=== PATIENT | male | born 1970 | race Two or more races ===

== ENCOUNTER 2020-03-20 23:51 | Emergency (ER) | payer BC ==
[2020-03-21] MEDS ORDERED: HYDROmorphone 1 MG/ML Syringe IVPUSH STA (00:24)
[2020-03-21] MEDS ORDERED: Ondansetron 4 MG/2 ML SDV IVPUSH ONE (00:24)
--- NOTE | 2020-03-21 00:29 | EDM.PDOC ---
ED HPI GENERAL MEDICAL PROBLEM - General Chief Complaint: Abdominal Pain Stated Complaint: ABDOMINAL PAIN Time Seen by Provider: 03/21/20 00:03 Source of Information: Reports: Patient History Limitations: Reports: No Limitations - History of Present Illness INITIAL COMMENTS - FREE TEXT/NARRATIVE: Mr. Brunner is a very pleasant 50-year-old gentleman who now presents to the emergency department with right upper quadrant abdominal pain. He states that he developed right upper quadrant abdominal pain, sharp and stabbing in character, around 18:00 this evening, after eating chicken fajitas around 17:00. He states that the pain has been progressively getting worse, and he has not identified any modifiers. He states that the pain radiates through to his right infrascapular area. He has had nausea, but no vomiting, constipation, diarrhea, or urinary symptoms. No recent fever. No prior similar symptoms. The patient did not take any xoou-rwc-doeaimu or home remedies prior to coming to the ED. Here in the ED, the patient's initial BP is found to be modestly elevated at 158/95, otherwise, he is hemodynamically stable, afebrile, saturating 97% on room air. Other than tonight's abdominal pain and nausea, the patient denies having a recent fever, chills, sore throat, ear pain, nasal or sinus congestion, cough, dyspnea, chest pain, palpitations, nausea, vomiting, constipation, diarrhea, abdominal pain, urinary symptoms, recent weight gain or weight loss, recent bloody bowel movements or black bowel movements, recent joint aches, headaches, or rashes. The patient's PCP is Mariana Lake NP. Right Upper Abdomen Pain Score (Numeric/FACES): 8 - Related Data Allergies Allergy/AdvReac Type Severity Reaction Status Date / Time No Known Allergies Allergy Verified 03/21/20 00:06 Home Meds: Home Meds Acetaminophen/HYDROcodone [Homosassa 325-5 MG] 1 - 2 tab PO Q6H PRN #20 tablet 03/21/20 [Rx] Dulaglutide [Trulicity] 1.5 mg SQ 03/21/20 [History] Ondansetron [Zofran ODT] 1 tab PO Q8H PRN #10 tab.dis 03/21/20 [Rx] Past Medical History Endocrine/Metabolic History: Reports: Diabetes, Type II, Obesity/BMI 30+ - Past Surgical History Dermatological Surgical History: Reports: Other (See Below) (Neck lymph node biopsy) Social & Family History - Tobacco Use Smoking Status *Q: Never Smoker - Alcohol Use Alcohol Use History: Yes Alcohol Use Frequency: Socially - Recreational Drug Use Recreational Drug Use: No - Living Situation & Occupation Living situation: Reports: , with Spouse 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 ED EXAM, GI/ABD - Physical Exam Exam: See Below Exam Limited By: No Limitations General Appearance: Alert, WD/WN, Mild Distress (appears uncomfortable) Eyes: Bilateral: Normal Appearance, EOMI Ears: Normal External Exam, Hearing Grossly Normal Nose: Normal Inspection Throat/Mouth: Normal Inspection, Normal Lips, Normal Voice, No Airway Compromise Head: Atraumatic, Normocephalic Neck: Normal Inspection, Full Range of Motion Respiratory/Chest: No Respiratory Distress, Lungs Clear, Normal Breath Sounds, No Accessory Muscle Use Cardiovascular: Normal Peripheral Pulses, Regular Rate, Rhythm, No Edema, No Gallop, No JVD, No Murmur, No Rub GI/Abdominal Exam: Soft, No Organomegaly, No Distention, No Abnormal Bruit, No Mass, Tender (Reproducible, to the right upper quadrant only. Completely nontender elsewhere.), Abnormal Bowel Sounds (diminished) (Male) Exam: Deferred Rectal (Males) Exam: Deferred Back Exam: Normal Inspection, Full Range of Motion. No: CVA Tenderness (L), CVA Tenderness (R) Extremities: Normal Inspection, Normal Range of Motion, Normal Capillary Refill Neurological: Alert, Oriented, Normal Cognition, No Motor/Sensory Deficits Psychiatric: Normal Affect Skin Exam: Warm, Dry, Intact, Normal Color, No Rash Course - Vital Signs Last Recorded V/S: Last Vital Signs Temp 36.2 C 03/21/20 00:03 Pulse 98 03/21/20 00:03 Resp 16 03/21/20 00:03 BP 158/95 H 03/21/20 00:03 Pulse Ox 97 03/21/20 00:03 - Orders/Labs/Meds Orders: Active Orders 24 hr Category Date Time Status Abdomen Pelvis w Cont [CT] Stat Exams 03/21/20 00:24 Taken CORONAVIRUS COVID-19 RAPID [MOLEC] Stat Lab 03/21/20 00:57 Ordered Sodium Chloride 0.9% [Normal Saline] 1,000 ml Med 03/21/20 00:30 Active IV ASDIRECTED Medication Orders Sodium Chloride (Normal Saline) 1,000 mls @ 150 mls/hr IV ASDIRECTED NEEMA Last Admin: 03/21/20 00:51 Dose: 150 mls/hr Documented by: MIGDALIA Labs: Laboratory Tests 03/21/20 03/21/20 Range/Units 00:37 00:37 WBC 10.80 H (4.23-9.07) K/mm3 RBC 5.55 (4.63-6.08) M/mm3 Hgb 16.6 (13.7-17.5) gm/dl Hct 47.4 (40.1-51.0) % MCV 85.4 (79.0-92.2) fl MCH 29.9 (25.7-32.2) pg MCHC 35.0 (32.2-35.5) g/dl RDW Std Deviation 41.1 (35.1-43.9) fL Plt Count 179 (163-337) K/mm3 MPV 9.5 (9.4-12.3) fl Neutrophils % (Manual) 68 H (40-60) % Band Neutrophils % 0 (0-10) % Lymphocytes % (Manual) 24 (20-40) % Atypical Lymphs % 0 % Monocytes % (Manual) 6 (2-10) % Eosinophils % (Manual) 2 (0.8-7.0) % Basophils % (Manual) 0 L (0.2-1.2) Platelet Estimate Adequate Plt Morphology Comment Normal RBC Morph Comment Normal Sodium 139 (136-145) mEq/L Potassium 3.8 (3.5-5.1) mEq/L Chloride 101 (98-107) mEq/L Carbon Dioxide 27 (21-32) mEq/L Anion Gap 14.8 (5-15) BUN 14 (7-18) mg/dL Creatinine 1.1 (0.7-1.3) mg/dL Est Cr Clr Drug Dosing 86.52 mL/min Estimated GFR (MDRD) > 60 (>60) mL/min BUN/Creatinine Ratio 12.7 L (14-18) Glucose 154 H (74-106) mg/dL Calcium 9.1 (8.5-10.1) mg/dL Magnesium 1.7 L (1.8-2.4) mg/dl Total Bilirubin 0.9 (0.2-1.0) mg/dL AST 62 H (15-37) U/L ALT 91 H (16-63) U/L Alkaline Phosphatase 87 (46-116) U/L Total Protein 7.9 (6.4-8.2) g/dl Albumin 3.9 (3.4-5.0) g/dl Globulin 4.0 gm/dL Albumin/Globulin Ratio 1.0 (1-2) Lipase 225 (73-393) U/L Meds: Medications Generic Name Dose Route Start Last Admin Trade Name Freq PRN Reason Stop Dose Admin Sodium Chloride 1,000 mls @ 150 mls/hr 03/21/20 00:30 03/21/20 00:51 Normal Saline IV 150 mls/hr ASDIRECTED NEEMA Administration Discontinued Medications Generic Name Dose Route Start Last Admin Trade Name Freq PRN Reason Stop Dose Admin Diatrizoate Meglum/Diatrizoate Sod 90 ml 03/21/20 02:43 03/21/20 02:44 Gastrografin 37% PO 03/21/20 02:44 90 ml ONETIME ONE Administration Hydromorphone HCl 1 mg 03/21/20 00:24 03/21/20 00:53 Dilaudid IVPUSH 03/21/20 00:25 1 mg ONETIME STA Administration Hydromorphone HCl 1 mg 03/21/20 02:03 03/21/20 02:07 Dilaudid IVPUSH 03/21/20 02:04 1 mg ONETIME ONE Administration Iopamidol 100 ml 03/21/20 02:43 03/21/20 02:44 Isovue-300 (61%) IVPUSH 03/21/20 02:44 100 ml ONETIME ONE Administration Ondansetron HCl 4 mg 03/21/20 00:24 03/21/20 00:51 Zofran IVPUSH 03/21/20 00:25 4 mg ONETIME ONE Administration - Re-Assessments/Exams Free Text/Narrative Re-Assessment/Exam: 03/21/20 00:26 As above, the patient developed sharp/stabbing right upper quadrant abdominal pain, that has been progressively getting worse, since 18:00 this evening, after eating chicken fajitas for dinner around 17:00. The pain radiates through to his right infrascapular area. His pain is reproducible with palpation of his right upper quadrant, but he has no CVA tenderness. He has nausea, but no vomiting. The rest of his exam is unremarkable. He is afebrile. I think his symptoms are most consistent with acute cholecystitis, although a right-sided ureterolith is remotely possible. I have ordered an ultrasound of the right upper quadrant, along with blood work. When he returns from ultrasound, he will drink oral contrast in preparation for a CT of his abdomen and pelvis with oral and IV contrast. In the meantime, the patient will be given IV Dilaudid, IV Zofran, and IV fluid. 03/21/20 00:42 Notified by Estefany ALMENDAREZ that the patient informed her that he had forgotten that he ate a guerrero and egg sandwich around 22:00. That would disqualify him for an ultrasound of the right upper quadrant at this time. I have therefore canceled that test. The patient can begin drinking the oral contrast for the CT. 03/21/20 01:53 The patient's CBC is remarkable for a WBC count mildly elevated at 10.80, but with 0% bandemia. The remainder of his CBC is unremarkable. His CMP is remarkable for a blood glucose elevated at 154, and AST/ALT elevated at 62/91, respectively. The remainder of his CMP is unremarkable. His magnesium level is slightly depressed at 1.7. His lipase level was within normal limits at 225. His swab for the SARS-CoV-2 virus has not yet been collected. 03/21/20 02:03 Notified by Estefany ALMENDAREZ that the patient requested additional pain medication. I have ordered additional Dilaudid. Also notified by Estefany ALMENDAREZ that the patient refused the swab to test for the SARS-CoV-2 virus, citing fear of pain due to nasal polyps. 03/21/20 02:55 CT of the abdomen and pelvis with oral and IV contrast is read by Juan Diego as: 1. Distended gallbladder with multiple gallstones noted. 2. Prominent celiac retroperitoneal lymphadenopathy, the largest measures approximately 3 cm. We have no prior films available for comparison. 03/21/20 03:[address] Kaba at 02:58. He would be to discharge the patient home with some pain medication, antinausea medicine, and a low-fat diet, then have him follow-up in the office this coming , 03/23/2020. 03/21/20 03:05 Test results and my conversation with Dr. Kaba discussed with the patient. As above, I will discharge him home with the recommendation that he eat as low- fat a diet as possible. He may take [id number]-[id number] ibuprofen, and I will prescribe for him some Homosassa and Zofran. He is to follow-up with Dr. Kaba on . Departure - Departure Time of Disposition: 03:06 Disposition: Home, Self-Care 01 Condition: Good Clinical Impression: Biliary colic - Discharge Information *PRESCRIPTION DRUG MONITORING PROGRAM REVIEWED*: Not Applicable *COPY OF PRESCRIPTION DRUG MONITORING REPORT IN PATIENT [place]: Not Applicable Prescriptions: Acetaminophen/HYDROcodone [Homosassa 325-5 MG] 1 - 2 tab PO Q6H PRN #20 tablet PRN Reason: Pain (Severe 7-10) Ondansetron [Zofran ODT] 1 tab PO Q8H PRN #10 tab.dis PRN Reason: Nausea/Vomiting Referrals: Mariana Lake NP [Primary Care Provider] - Raymundo Kaba MD [Physician] - Forms: ED Department Discharge Additional Instructions: You were seen in the emergency room after developing sharp/stabbing pain in your upper right abdomen that radiated through to your right back. Work-up in the ER included blood work and a CT scan of your abdomen and pelvis with oral and IV contrast. Your blood work was unremarkable, however, the CT scan found that you have a large gallbladder filled with gallstones. Based on your history, physical exam, and ER tests, the cause of your pain is most likely due to biliary colic. We recommend that you eat as low-fat a diet as possible. You may take pula-qyb-wmjuazd ibuprofen, 3 to 4 tablets (600-800 mg) up to every 8 hours, with food, as needed for discomfort. You may take 1 to 2 tablets of the prescription opioid pain reliever Homosassa up to every 6 hours as needed for pain not relieved by ibuprofen. If you take Homosassa, do not drive or operate heavy machinery for 12 hours afterwards. Homosassa may cause constipation, so consider taking a stool softener. You may dissolve 1 tablet of the anti-nausea medicine Zofran on your tongue up to every 8 hours, as needed for nausea/vomiting. Follow-up with the Surgeon Dr. Raymundo Kaba in his office this coming , 03/23/2020. We recommend that you call his office this morning to make an appointment at that time. If any other problems, please do not hesitate to return to the ER. Sepsis Event Note (ED) - Evaluation Sepsis Screening Result: No Definite Risk - Focused Exam Vital Signs: Vital Signs Temp Pulse Resp BP Pulse Ox 03/21/20 00:03 36.2 C 98 16 158/95 H 97 - My Orders Last 24 Hours: My Active Orders 03/21/20 00:24 Abdomen Pelvis w Cont [CT] Stat 03/21/20 00:30 Sodium Chloride 0.9% [Normal Saline] 1,000 ml IV ASDIRECTED 03/21/20 00:57 CORONAVIRUS COVID-19 RAPID [MOLEC] Stat - Assessment/Plan Last 24 Hours: My Active Orders 03/21/20 00:24 Abdomen Pelvis w Cont [CT] Stat 03/21/20 00:30 Sodium Chloride 0.9% [Normal Saline] 1,000 ml IV ASDIRECTED 03/21/20 00:57 CORONAVIRUS COVID-19 RAPID [MOLEC] Stat
[2020-03-21] MEDS ORDERED: Sodium Chloride 0.9% 1,000 ML IV SCH (00:30)
[2020-03-21] MEDS ORDERED: HYDROmorphone 1 MG/ML Syringe IVPUSH ONE (02:03)
[2020-03-21] MEDS ORDERED: Iopamidol 612 MG/ML 100 ML Bottle IVPUSH ONE (02:43)
[2020-03-21] MEDS ORDERED: Diatrizoate Meglumine/Diatrizoate Sodium 37% 120 ML Bottle PO ONE (02:43)
--- NOTE | 2020-03-21 06:36 | CT ---
CT abdomen and pelvis Technique: Multiple axial sections were obtained from above the dome of the diaphragm inferiorly through the pubic symphysis. Intravenous and oral contrast was utilized. Delayed images were also obtained through the abdomen and pelvis. Comparison: No prior abdominal imaging is available. Findings: Visualized lung bases show nothing acute. Liver shows diminished density most likely representing fatty infiltration. No focal abnormalities is appreciated within the liver. Spleen is mildly enlarged with a length of slightly greater than 14 cm. Adrenal glands show no nodule. Several mildly prominent lymph nodes are seen within the upper retroperitoneum near the root of the celiac access. Largest lymph node measures about 2.7 cm. Gallbladder is slightly distended and shows minimal increased density possibly due to gallstones. Kidneys show symmetric contrast enhancement. Minimal cortical cysts are seen within both kidneys. Delayed images shows contrast excretion into the kidneys and within the ureter. Aorta shows no aneurysm. No additional retroperitoneal adenopathy is seen. No mesenteric abnormalities are seen. No pelvic mass or adenopathy is seen. Appendix felt to be visualized and is normal in size. No free fluid or inflammatory change is appreciated. Bone window settings were reviewed. Mild anterior wedge deformity is noted of L1 which is most likely old. Scattered degenerative change within the spine is seen. Impression: 1. Slightly prominent lymph nodes within the upper retroperitoneum around the root of the celiac access with largest lymph node measuring about 2.7 cm. These are nonspecific. Consider follow-up contrast CT study in 6 months to evaluate for stability. 2. Spleen slightly enlarged measuring slightly above 14.0 cm. 3. Probable fatty infiltration within the liver. 4. Questionable gallstones with mildly dilated gallbladder. 5. Other findings believed to be incidental as noted above. Diagnostic code #9 This report was dictated in MDT I agree with preliminary report from [facility], finalized on 03/19/20, 3:51 AM Central Daylight Time
== END 2020-03-21 03:21 | disposition home or self-care (01) ==
LOC: JD.ED 23:51
DX: K80.50 Calculus of bile duct without cholangitis or cholecystitis without obstruction (principal); E11.9 Type 2 diabetes mellitus without complications; E66.9 Obesity, unspecified; Z68.34 Body mass index [BMI] 34.0-34.9, adult; Z79.84 Long term (current) use of oral hypoglycemic drugs
CPT/HCPCS: 36415; 74177; 80053; 83690; 83735; 85007; 85027; 96361; 96374; 96375; 96376; 99284; J1170; J2405; J7030; Q9963; Q9967